=== PATIENT | male | born 1970 | race Caucasian/White ===

== ENCOUNTER 2016-10-14 17:26 | Emergency (ER) | payer SELFPAY ==
--- NOTE | 2016-10-14 18:33 | DIAGNOSTIC IMAGING REPORT ---
PROCEDURE: CT HEAD WITHOUT CONTRAST INDICATION: Seizure and headache, initial encounter TECHNIQUE: Noncontrast axial images with sagittal and coronal reformations. COMPARISON: None. FINDINGS: Sulci, ventricular system, and brain parenchyma are normal. No evidence of acute intracranial process. Mild mucosal thickening of all sinuses. Mastoids are clear. IMPRESSION: 1. No acute intracranial abnormality 2. Mild mucosal thickening of all sinuses 3. Findings discussed with Dr. Umaznor at 06:32 p.m.[facility] Standard Time
--- NOTE | 2016-10-14 18:33 | DIAGNOSTIC IMAGING REPORT ---
PROCEDURE: CT HEAD WITHOUT CONTRAST INDICATION: Seizure and headache, initial encounter TECHNIQUE: Noncontrast axial images with sagittal and coronal reformations. COMPARISON: None. FINDINGS: Sulci, ventricular system, and brain parenchyma are normal. No evidence of acute intracranial process. Mild mucosal thickening of all sinuses. Mastoids are clear. IMPRESSION: 1. No acute intracranial abnormality 2. Mild mucosal thickening of all sinuses 3. Findings discussed with Dr. Umanzor at 06:32 p.m.[facility] Standard Time
--- NOTE | 2016-10-14 21:10 | ED ORDER SUMMARY ---
..... Patient: RYAN RYAN OrderSheet [facility] VisitID: [id number] [address] [place] [address] 45y, M Registration Date/Time: 10/14/2016 ORDER SHEET Weight: 113.3 kg (stated) Allergies: No Known Drug Allergy GENERAL ORDERS: CT Head wo Cont Urgent (18:13 10/14/2016 Lewis Bolton) (Ack 18:17 TBergley) (18:25 MCampbell) CBC w Diff Urgent (18:13 10/14/2016 Lewis Bolton) (Ack 18:17 TBergley) (18:47 TBergley) CMP Urgent (18:10/14/2016 Lewis Bolton) (Ack 18:17 TBergley) (18:47 TBergley) UA-Culture if indicated Urgent (18:13 10/14/2016 Lewis Bolton) (Ack 18:17 TBergley) (18:45 LSullivan R.N.) Urine Drug Screen Urgent (18:13 10/14/2016 Lewis Bolton) (Ack 18:17 TBergley) (18:45 LSullivan R.N.) MEDICATION ORDERS: IV FLUIDS: IV NS : initial bolus none -, then 1000 mL/hr for X1 (NOW) (18:12 10/14/2016 Lewis Bolton) (18:45 LSullivan R.N.) Toradol IV 30 mg (NOW) (20:18 10/14/2016 Lewis Bolton) (Ack 20:54 ALEXInderbitzen R.N.) (20:58 DBeyer R.N.) ORDER SHEET NOTES: [Electronically signed by Sanjana Wilkins R.N. (21:34 10/14/2016)] [Electronically signed by Bautista Umanzor Dr. (21:44 10/15/2016)] [Electronically locked/signed by Sanjana Wilkins R.N. (21:34 10/14/2016)]
--- NOTE | 2016-10-14 21:10 | ED CLINICAL REPORT ---
Clinical Report - Physicians/Mid Levels [facility] [address] [address] 10/14/2016 17:26 Patient: RYAN RYAN Time Seen: 17:43; initial patient contact. Arrived- By ambulance. Historian- patient. HISTORY OF PRESENT ILLNESS Chief Complaint: SINGLE SEIZURE. This occurred just prior to arrival. The patient recovered at the scene. Seizure was witnessed. Had a single isolated seizure. Seizure activity was brief and lasted seconds. The patient lost consciousness. Generalized motor activity observed. No incontinence or apnea noted. No post-ictal symptoms. No injuries noted. Has not recently been ill. No alcohol recently. Pt was dehydrated and bent over to pick something up, felt lightheaded and "passed out and had seizure like activity. Similar symptoms previously: None. Recent medical care: Not recently seen/assessed. REVIEW OF SYSTEMS No fever, palpitations or difficulty breathing. All systems otherwise negative, except as recorded above. PAST HISTORY ( Adult ADHD). Surgeries: No history of previous surgery. Additional Surgeries: no known surgeries. Medications: Ritalin 20 mg daily. Allergies: No Known Drug Allergy. SOCIAL HISTORY Never smoker. Occasional alcohol use. No drug use. ADDITIONAL NOTES The nursing notes have been reviewed with agreement regarding the chief complaint, PMH and patient medications and allergies. PHYSICAL EXAM Vital Signs: 10/14/2016 17:34 BP: 150/87. HR: 123. RR: 18. O2 saturation: 92%. Temp: 98.2 F. Pain level now: 0/10. Have been reviewed. Hypertensive. Tachycardic. Respiratory rate normal. Temperature normal. Oxygen saturation low. Appearance: Alert. No acute distress. Eyes: Pupils equal, round and reactive to light. No nystagmus. Extraocular movements normal. ENT: Normal ENT inspection. Dry mucous membranes present. Neck: Normal inspection. Neck supple. No meningeal signs. CVS: Tachycardia. Heart sounds normal. Rhythm normal. Respiratory: No respiratory distress. Breath sounds normal. Abdomen: Soft and nontender. No organomegaly. Skin: Skin warm and dry. Normal skin color. No rash. Extremities: No lower extremity edema. Neuro: Alert. Oriented X 3. Mood/affect normal. Speech normal. Cranial nerves normal (as tested). No cerebellar findings. No motor deficit. No sensory deficit. Reflexes normal. LABS, X-RAYS, AND EKG Laboratory Tests: UA-Culture if indicated: (VIANNEY: 10/14/2016 18:35) ( [facility] 10/14/2016 19:01) Final results Test Result Flag Units (Reference) URINE COLOR YELLOW URINE APPEARANCE CLEAR URINE GLUCOSE NEGATIVE (NEGATIVE) URINE BILIRUBIN NEGATIVE (NEGATIVE) URINE KETONE 2+ (NEGATIVE) URINE SPECIFIC GRAVITY 1.025 (1.010-1.030) URINE PH 6.0 (5.0-8.0) URINE PROTEIN 1+ (NEGATIVE) URINE UROBILINOGEN 0.2 EU/dL (0.2-1.0) URINE NITRITE NEGATIVE (NEGATIVE) URINE BLOOD TRACE-INTACT (NEGATIVE) URINE LEUK ESTERASE NEGATIVE (NEGATIVE) URINE RBC NONE SEEN rbc/hpf (0-1) URINE WBC RARE wbc/hpf (0-1) URINE EPITHELIAL CELLS 0-1 EPI/hpf (0-5) URINE BACTERIA NONE SEEN (NONE SEEN) URINE COMMENT CULT NOT INDICATED 1+ MUCUS1-3 Hyaline Casts/l.p.f.URINE CULTURES ARE SET-UP BASED ON THE FOLLOWING CRITERIA:POSITIVE NITRITEPOSITIVE LEUKOCYTE ESTERASEGREATER THAN 10 WHITE BLOOD CELLSMODERATE (2+) OR GREATER BACTERIA CBC w Diff: (VIANNEY: 10/14/2016 18:56) ( [facility] 10/14/2016 19:13) Final results Test Result Flag Units (Reference) WHITE BLOOD COUNT 13.1 H K/uL (4.5-11.5) RED BLOOD COUNT 5.12 M/uL (4.50-5.90) HEMOGLOBIN 13.1 L gm/dL (13.5-17.5) HEMATOCRIT 39.8 L % (41.0-53.0) MEAN CELL VOLUME 78 L fL (80-100) MEAN CORPUSCULAR HGB 26 pg (26-34) MEAN CORPUSCULAR HGB CONC 33 g/dL (31-37) RED CELL DISTRIBUTION WIDTH 15.2 H % (11.6-14.8) PLATELET COUNT 287 K/uL (150-400) NEUTROPHIL % 87.5 H % (50-75) LYMPH % 7.6 L % (25-40) MONO % 4.4 % (3-14) EOSINOPHIL % 0.4 % (0-4) BASOPHIL % 0.1 % (0-2) Urine Drug Screen: (VIANNEY: 10/14/2016 18:35) ( [facility] 10/14/2016 18:55) Final results Test Result Flag Units (Reference) AMPHETAMINE/METHAMPHETAMINE NEGATIVE (NEGATIVE) BARBITURATE NEGATIVE (NEGATIVE) BENZODIAZEPINE NEGATIVE (NEGATIVE) CANNABINOID NEGATIVE (NEGATIVE) COCAINE NEGATIVE (NEGATIVE) ECSTASY NEGATIVE (NEGATIVE) METHADONE NEGATIVE (NEGATIVE) OPIATE NEGATIVE (NEGATIVE) The urine drug screen is a qualitative screening test fordrug overdose and abuse. All screen results should beconsidered as presumptive.Drugs screened for are as follows:BenzodiazepinesCocaineAmphetamines/MetamphetaminesTHC (Tetrahydrocannabinol)OpiatesBarbituratesEcstasyMethadonePositive results are unconfirmed. For confirmation, notifythe lab for the specimen to be sent to the reference lab.All confirmations must be performed by a differentmethodology.The ingestion of natural herbal and plant productscontaining Ephedra/Ephedra metabolites can produce in urineone or more substances capable of cross reacting withamphetamine/methamphetamine immunoassays. These testsprovide a preliminary result only. A more specificalternative chemical method must be used to obtain aconfirmed analytical result. CMP: (VIANNEY: 10/14/2016 18:56) ( [facility] 10/14/2016 19:15) Final results Test Result Flag Units (Reference) GLUCOSE 108 mg/dL (70-110) BUN 11 mg/dL (7-18) CREATININE 1.1 mg/dL (0.6-1.3) Estimated GFR >60 mL/min Estimated GFR- >60 mL/min Note: Persistent reduction over 3 months in eGFR<60 mL/min/1.73 m2 defines CKD. Patients with eGFR values>=60 mL/min/1.73 m2 may also have CKD if evidence ofpersistent proteinuria. Additional information may be foundat www.[email or web address].org. SODIUM 142 mmol/L (136-145) POTASSIUM 3.8 mmol/L (3.5-5.1) CHLORIDE 105 mmol/L (98-107) CARBON DIOXIDE 25 mmol/L (21-32) CALCIUM 8.1 L mg/dL (8.5-10.1) TOTAL PROTEIN 7.3 g/dL (6.4-8.2) ALBUMIN 3.4 g/dL (3.3-5.0) BILIRUBIN, TOTAL 0.9 mg/dL (0.0-1.0) ALKALINE PHOSPHATASE 162 H U/L (46-116) AST (SGOT) 53 H U/L (15-37) ALT (SGPT) 61 U/L (12-78) . PROGRESS AND PROCEDURES Disposition: Discharged home in good and improved condition. Condition: good. CLINICAL IMPRESSION Vasovagal syncope INSTRUCTIONS Drink plenty of fluids. Your Current Medications: CONTINUE TAKING THE FOLLOWING MEDICATIONS: Ritalin 20 mg daily*. Prescription Medications: Zofran (orally disintegrating tablets) 4 mg: take 1 orally every 6 hours as needed for nausea and vomiting. Dispense ten (10). No refill. Substitution is permissible. Follow-up: Screening today revealed the patient's blood pressure to be in the hypertensive range. The patient should follow up with a primary care provider for blood pressure management. Follow-up with: [facility], [facility], , [address] [place] [address], [address] [place] [address] Follow up in about four days. Call for an appointment. (Electronically signed by Bautista Umanzor Dr. 10/15/2016 21:44)
--- NOTE | 2016-10-14 21:10 | ED NURSING NOTES ---
Clinical Report - Nurses [facility] [place] [address] 10/14/2016 17:26 Patient: RYAN RYAN TRIAGE Triage time 17:35. Acuity: LEVEL 3. Chief Complaint: SYNCOPE and (Pt bent over towards the floor, passed out, was pale and diaphoretic). Alert. --17:42 Lis Galeano R.N. 17:34 10/14/16. BP: 150/87. HR: 123. RR: 18. O2 saturation: 92%. Temp: 98.2 F. Pain level now: 0/10. --17:42 Lis Galeano R.N. Weight: 113.3 kg stated. Height/Length: 75 inches Per Patient. BMI: 31.2. --17:35 Lis Galeano R.N. Medications Ritalin 20 mg daily. --17:37 Lis Galeano R.N. Allergies No Known Drug Allergy. --17:37 Lis Galeano R.N. History Arrived by EMS. Historian: patient. Accompanied by family. Primary physician (none here, pt from [place], looking to possibly move up here). This started just prior to arrival and today. PAST MEDICAL HX: No history of seizures. SOCIAL HX: Never smoker. Occasional alcohol use. No drug use. SELF HARM ASSESSMENT: A self harm assessment was performed. The patient answered "no" to the question "Do you have thoughts of harming or killing yourself?". FUNCTIONAL ASSESSMENT: Functional assessment: no impairments noted. --17:42 Lis Galeano R.N. PROBLEMS: Adult ADHD. --17:38 Lis Galeano R.N. Interventions ID band on patient. To room. --17:42 Lis Galeano R.N. PHYSICAL ASSESSMENT 17:42 10/14/16. GENERAL / NEURO / PSYCH: Alert. Oriented X 4. Speech within normal limits. Patient appears well-nourished and neat and clean. --17:42 Lis Galeano R.N. NURSING PROGRESS NOTES 17:43 10/14/16. Head of bed elevated. Patient identifiers checked. Call light placed in reach. Bed placed in lowest position. Patient ready for evaluation. --17:43 Lis Galeano R.N. 18:04 10/14/2016 Site #1 started via IV in the right wrist with an 20g angiocath (EMS hung a liter of NS, 500 mls has completed on arrival. ERMD wants that bag finished, then hang another liter of NS after, for a total of 2 liters.). --18:20 Lis Galeano R.N. Patient walked to CO with tech. --18:20 Lis Galeano R.N. 18:45 10/14/2016 Started bag #1 1000 mL IV Fluids IV NS (Saline); at 1000 mL/hr via site #1 via IV pump. Allergies verified and confirmed 5 rights. IV patency established. IV site checked: no pain, redness, or swelling. IV flushed thoroughly pre- and post-medication administration. --18:45 Lis Galeano R.N. 18:48 10/14/16. BP: 144/84. HR: 107. RR: 18. O2 saturation: 94% on room air. Pain level now: 0/10. --18:49 Lis Galeano R.N. Care transferred and report given (to JANETH Yanez). --19:19 Lis Galeano R.N. 19:29 10/14/16. BP: 138/90. HR: 103. RR: 16. O2 saturation: 100%. Pain level now 0/10. --19:29 Sanjana Wilkins R.N. 19:29 10/14/16. The patient reports no complaints and he is calm and resting quietly. Patient waiting for disposition. --19:29 Sanjana Wilkins R.N. 19:39 10/14/16. ( PATIENT NOW STATES FEELING ACHY ALL OVER AND IS REQUESTING SOMETHING FOR PAIN). --19:40 Sanjana Wilkins R.N. 19:40 10/14/2016 IV Fluids IV NS Discontinued: bag #1 infused. Total amount infused: 1000 mL. IV patency established. IV site checked: no pain, redness, or swelling. IV flushed thoroughly. --19:40 Sanjana Wilkins R.N. 20:54 10/14/16. BP: 140/80. HR: 107. RR: 18. O2 saturation: 100%. Temp: 98.8 F. --20:54 Esteban Andujar R.N. 20:58 10/14/2016 Toradol IVP 30 mg given over 2 minute(s) via site #1. Allergies verified and confirmed 5 rights. IV patency established. IV site checked: no pain, redness, or swelling. IV flushed thoroughly pre- and post-medication administration. IVP given by RN. --20:58 Esteban Andujar R.N. DISPOSITION / DISCHARGE 21:32 10/14/2016 Site #1 removed upon discharge. Catheter intact. Pressure dressing and bandaid applied. --21:32 Sanjana Wilkins R.N. 21:33 10/14/16. Departure time: 21:33 Oct 14 2016. Condition at departure: improved and stable. The goals identified in the patient's plan of care were met. No learning barriers present. Discharge instructions provided and reviewed with the patient. Reviewed medication(s) side effects, precautions, dosing and course information. Prescription(s) given to the patient. Reviewed referral to a primary care physician for followup. Summary of care provided to patient via paper. Patient verbalized understanding. Written instructions provided in Urdu. The patient was discharged home and accompanied by family. He left the Emergency Department ambulatory and via private vehicle. Family member driving. --21:33 Sanjana Wilkins R.N. 20:54 10/14/16. BP: 140/80. HR: 107. RR: 18. O2 saturation: 100%. Temp: 98.8 F. 19:29 10/14/16. BP: 138/90. HR: 103. RR: 16. O2 saturation: 100%. Pain level now 0/10. 18:48 10/14/16. BP: 144/84. HR: 107. RR: 18. O2 saturation: 94% on room air. Pain level now: 0/10. 17:34 10/14/16. BP: 150/87. HR: 123. RR: 18. O2 saturation: 92%. Temp: 98.2 F. Pain level now: 010. --21:33 Sanjana Wilkins R.N. Locked/Released at 10/14/2016 21:34 by Sanjana Wilkins R.N.
--- NOTE | 2016-10-14 21:10 | ED ORDER SUMMARY ---
..... Patient: RYAN RYAN OrderSheet [facility] VisitID: [id number] [address] [place] [address] 45y, M Registration Date/Time: 10/14/2016 ORDER SHEET Weight: 113.3 kg (stated) Allergies: No Known Drug Allergy GENERAL ORDERS: CT Head wo Cont Urgent (18:13 10/14/2016 Lewis Bolton) (Ack 18:17 TBergley) (18:25 MCampbell) CBC w Diff Urgent (18:13 10/14/2016 Lewis Bolton) (Ack 18:17 TBergley) (18:47 TBergley) CMP Urgent (18:10/14/2016 Lewis Bolton) (Ack 18:17 TBergley) (18:47 TBergley) UA-Culture if indicated Urgent (18:13 10/14/2016 Lewis Bolton) (Ack 18:17 TBergley) (18:45 LSullivan R.N.) Urine Drug Screen Urgent (18:13 10/14/2016 Lewis Bolton) (Ack 18:17 TBergley) (18:45 LSullivan R.N.) MEDICATION ORDERS: IV FLUIDS: IV NS : initial bolus none -, then 1000 mL/hr for X1 (NOW) (18:12 10/14/2016 Lewis Bolton) (18:45 LSullivan R.N.) Toradol IV 30 mg (NOW) (20:18 10/14/2016 Lewis Bolton) (Ack 20:54 ALEXInderbitzen R.N.) (20:58 DBeyer R.N.) ORDER SHEET NOTES: [Electronically signed by Sanjana Wilkins R.N. (21:34 10/14/2016)] [Electronically signed by Bautista Umanzor Dr. (21:44 10/15/2016)] [Electronically locked/signed by Sanjana Wilkins R.N. (21:34 10/14/2016)]
--- NOTE | 2016-10-14 21:10 | ED CLINICAL REPORT ---
Clinical Report - Physicians/Mid Levels [facility] [address] [place] [address] 10/14/2016 17:26 Patient: RYAN RYAN Time Seen: 17:43; initial patient contact. Arrived- By ambulance. Historian- patient. HISTORY OF PRESENT ILLNESS Chief Complaint: SINGLE SEIZURE. This occurred just prior to arrival. The patient recovered at the scene. Seizure was witnessed. Had a single isolated seizure. Seizure activity was brief and lasted seconds. The patient lost consciousness. Generalized motor activity observed. No incontinence or apnea noted. No post-ictal symptoms. No injuries noted. Has not recently been ill. No alcohol recently. Pt was dehydrated and bent over to pick something up, felt lightheaded and "passed out and had seizure like activity. Similar symptoms previously: None. Recent medical care: Not recently seen/assessed. REVIEW OF SYSTEMS No fever, palpitations or difficulty breathing. All systems otherwise negative, except as recorded above. PAST HISTORY ( Adult ADHD). Surgeries: No history of previous surgery. Additional Surgeries: no known surgeries. Medications: Ritalin 20 mg daily. Allergies: No Known Drug Allergy. SOCIAL HISTORY Never smoker. Occasional alcohol use. No drug use. ADDITIONAL NOTES The nursing notes have been reviewed with agreement regarding the chief complaint, PMH and patient medications and allergies. PHYSICAL EXAM Vital Signs: 10/14/2016 17:34 BP: 150/87. HR: 123. RR: 18. O2 saturation: 92%. Temp: 98.2 F. Pain level now: 0/10. Have been reviewed. Hypertensive. Tachycardic. Respiratory rate normal. Temperature normal. Oxygen saturation low. Appearance: Alert. No acute distress. Eyes: Pupils equal, round and reactive to light. No nystagmus. Extraocular movements normal. ENT: Normal ENT inspection. Dry mucous membranes present. Neck: Normal inspection. Neck supple. No meningeal signs. CVS: Tachycardia. Heart sounds normal. Rhythm normal. Respiratory: No respiratory distress. Breath sounds normal. Abdomen: Soft and nontender. No organomegaly. Skin: Skin warm and dry. Normal skin color. No rash. Extremities: No lower extremity edema. Neuro: Alert. Oriented X 3. Mood/affect normal. Speech normal. Cranial nerves normal (as tested). No cerebellar findings. No motor deficit. No sensory deficit. Reflexes normal. LABS, X-RAYS, AND EKG Laboratory Tests: UA-Culture if indicated: (VIANNEY: 10/14/2016 18:35) ( [facility] 10/14/2016 19:01) Final results Test Result Flag Units (Reference) URINE COLOR YELLOW URINE APPEARANCE CLEAR URINE GLUCOSE NEGATIVE (NEGATIVE) URINE BILIRUBIN NEGATIVE (NEGATIVE) URINE KETONE 2+ (NEGATIVE) URINE SPECIFIC GRAVITY 1.025 (1.010-1.030) URINE PH 6.0 (5.0-8.0) URINE PROTEIN 1+ (NEGATIVE) URINE UROBILINOGEN 0.2 EU/dL (0.2-1.0) URINE NITRITE NEGATIVE (NEGATIVE) URINE BLOOD TRACE-INTACT (NEGATIVE) URINE LEUK ESTERASE NEGATIVE (NEGATIVE) URINE RBC NONE SEEN rbc/hpf (0-1) URINE WBC RARE wbc/hpf (0-1) URINE EPITHELIAL CELLS 0-1 EPI/hpf (0-5) URINE BACTERIA NONE SEEN (NONE SEEN) URINE COMMENT CULT NOT INDICATED 1+ MUCUS1-3 Hyaline Casts/l.p.f.URINE CULTURES ARE SET-UP BASED ON THE FOLLOWING CRITERIA:POSITIVE NITRITEPOSITIVE LEUKOCYTE ESTERASEGREATER THAN 10 WHITE BLOOD CELLSMODERATE (2+) OR GREATER BACTERIA CBC w Diff: (VIANNEY: 10/14/2016 18:56) ( [facility] 10/14/2016 19:13) Final results Test Result Flag Units (Reference) WHITE BLOOD COUNT 13.1 H K/uL (4.5-11.5) RED BLOOD COUNT 5.12 M/uL (4.50-5.90) HEMOGLOBIN 13.1 L gm/dL (13.5-17.5) HEMATOCRIT 39.8 L % (41.0-53.0) MEAN CELL VOLUME 78 L fL (80-100) MEAN CORPUSCULAR HGB 26 pg (26-34) MEAN CORPUSCULAR HGB CONC 33 g/dL (31-37) RED CELL DISTRIBUTION WIDTH 15.2 H % (11.6-14.8) PLATELET COUNT 287 K/uL (150-400) NEUTROPHIL % 87.5 H % (50-75) LYMPH % 7.6 L % (25-40) MONO % 4.4 % (3-14) EOSINOPHIL % 0.4 % (0-4) BASOPHIL % 0.1 % (0-2) Urine Drug Screen: (VIANNEY: 10/14/2016 18:35) ( [facility] 10/14/2016 18:55) Final results Test Result Flag Units (Reference) AMPHETAMINE/METHAMPHETAMINE NEGATIVE (NEGATIVE) BARBITURATE NEGATIVE (NEGATIVE) BENZODIAZEPINE NEGATIVE (NEGATIVE) CANNABINOID NEGATIVE (NEGATIVE) COCAINE NEGATIVE (NEGATIVE) ECSTASY NEGATIVE (NEGATIVE) METHADONE NEGATIVE (NEGATIVE) OPIATE NEGATIVE (NEGATIVE) The urine drug screen is a qualitative screening test fordrug overdose and abuse. All screen results should beconsidered as presumptive.Drugs screened for are as follows:BenzodiazepinesCocaineAmphetamines/MetamphetaminesTHC (Tetrahydrocannabinol)OpiatesBarbituratesEcstasyMethadonePositive results are unconfirmed. For confirmation, notifythe lab for the specimen to be sent to the reference lab.All confirmations must be performed by a differentmethodology.The ingestion of natural herbal and plant productscontaining Ephedra/Ephedra metabolites can produce in urineone or more substances capable of cross reacting withamphetamine/methamphetamine immunoassays. These testsprovide a preliminary result only. A more specificalternative chemical method must be used to obtain aconfirmed analytical result. CMP: (VIANNEY: 10/14/2016 18:56) ( [facility] 10/14/2016 19:15) Final results Test Result Flag Units (Reference) GLUCOSE 108 mg/dL (70-110) BUN 11 mg/dL (7-18) CREATININE 1.1 mg/dL (0.6-1.3) Estimated GFR >60 mL/min Estimated GFR- >60 mL/min Note: Persistent reduction over 3 months in eGFR<60 mL/min/1.73 m2 defines CKD. Patients with eGFR values>=60 mL/min/1.73 m2 may also have CKD if evidence ofpersistent proteinuria. Additional information may be foundat www.kidney.org. SODIUM 142 mmol/L (136-145) POTASSIUM 3.8 mmol/L (3.5-5.1) CHLORIDE 105 mmol/L (98-107) CARBON DIOXIDE 25 mmol/L (21-32) CALCIUM 8.1 L mg/dL (8.5-10.1) TOTAL PROTEIN 7.3 g/dL (6.4-8.2) ALBUMIN 3.4 g/dL (3.3-5.0) BILIRUBIN, TOTAL 0.9 mg/dL (0.0-1.0) ALKALINE PHOSPHATASE 162 H U/L (46-116) AST (SGOT) 53 H U/L (15-37) ALT (SGPT) 61 U/L (12-78) . PROGRESS AND PROCEDURES Disposition: Discharged home in good and improved condition. Condition: good. CLINICAL IMPRESSION Vasovagal syncope INSTRUCTIONS Drink plenty of fluids. Your Current Medications: CONTINUE TAKING THE FOLLOWING MEDICATIONS: Ritalin 20 mg daily*. Prescription Medications: Zofran (orally disintegrating tablets) 4 mg: take 1 orally every 6 hours as needed for nausea and vomiting. Dispense ten (10). No refill. Substitution is permissible. Follow-up: Screening today revealed the patient's blood pressure to be in the hypertensive range. The patient should follow up with a primary care provider for blood pressure management. Follow-up with: [facility] Medicine, [facility], , [address] [place] [address], [address] [place] [address] Follow up in about four days. Call for an appointment. (Electronically signed by Bautista Umanzor Dr. 10/15/2016 21:44)
--- NOTE | 2016-10-15 21:45 | ED MED RECONCILIATION SUMMARY ---
Patient: RYAN RYAN Medication Reconciliation Report [facility] VisitID: [id number] [address] [place] [address] 45y, M Registration Date/Time: 10/14/2016 Weight: 113.3 kg Height/Length: 75 in. BMI: 31.2 ALLERGIES: No Known Drug Allergy The patient's Home Medications are listed below: CONTINUE TAKING THE FOLLOWING MEDICATIONS: Ritalin 20 mg daily The source(s) of the original Home Medication information: Not obtained. The following Medications were given to the patient in the Emergency Department: IV NS IV Fluids bolus 0, then 1000 mL/hr, administered: 10/14/2016 6:45:00 PM Toradol [IVP] IVP 30 mg, administered: 10/14/2016 8:58:00 PM The following Medications were prescribed to the patient: Zofran (orally disintegrating tablets) 4 mg: take 1 orally every 6 hours as needed for nausea and vomiting. Dispense ten (10). No refill. Substitution is permissible. -- Bautista Umanzor Dr.
--- NOTE | 2016-10-15 21:45 | ED MAR SUMMARY ---
..... Medication Administration Record [facility] [address] [place] [address] Patient: RYAN RYAN Visit ID: [id number] 45y, M Weight: 113.3 kg Height/Length: 75 in BMI: 31.2 ALLERGIES: No Known Drug Allergy Start 18:45 10/14/2016 Lis Galeano RDarleen, Stop 19:40 10/14/2016 Sanjana Wilkins R.N. Medication Administered: IV NS (SALINE), Dose: IV Fluids, Rate: 1000 mL/hr, Dispensed: 1000 mL bag, Site: #1 right wrist. Medication Ordered: IV NS : initial bolus none -, then 1000 mL/hr for X1 (NOW). Given 20:58 10/14/2016 Esteban Andujar RDarleen Medication Administered: TORADOL [IVP], Dose: 30 mg IVP over 2 minute(s), Site: #1 right wrist. Medication Ordered: Toradol IV 30 mg (NOW).
--- NOTE | 2016-10-15 21:45 | ED DISCHARGE INSTRUCTIONS ---
Patient: RYAN RYAN General Instructions [facility] VisitID: [id number] [address] [place] [address] 45y, M Registration Date/Time: 10/14/2016 Vasovagal syncope INSTRUCTIONS Drink plenty of fluids. Your Current Medications: CONTINUE TAKING THE FOLLOWING MEDICATIONS: Ritalin 20 mg daily*. Prescription Medications: Zofran (orally disintegrating tablets) 4 mg: take 1 orally every 6 hours as needed for nausea and vomiting. Dispense ten (10). No refill. Substitution is permissible. Follow-up: Screening today revealed the patient's blood pressure to be in the hypertensive range. The patient should follow up with a primary care provider for blood pressure management. Follow-up with: [facility], [facility], , [address] [place] [address], [address], [place] [address] Follow up in about four days. Call for an appointment. ADDITIONAL INFORMATION Fainting:Vagal Reaction Fainting (syncope) is a temporary loss of consciousness ("passing out"). It occurs when blood flow to the brain is reduced. Your doctor believes that your episode was due to a vagal reaction. This condition is not a sign of serious disease. A vagal reaction is a reflex response that causes the pulse to slow down or the blood vessels to dilate. This causes the blood pressure to fall, reducing the blood flow to the brain if you are standing or sitting. That results in dizziness, near-fainting or fainting. Lying down usually stops the reaction within 60 seconds. This reflex response can occur during sudden fear, severe pain, emotional stress, overexertion, overheating, hunger, nausea or vomiting, prolonged standing or standing up after sitting or lying for a long time. Home Care: 1) Rest today and resume your normal activities as soon as you are feeling back to normal. 2) If you become light-headed or dizzy, lie down immediately or sit with your head lowered between your knees. Follow Up with your doctor as instructed. Get Prompt Medical Attention if any of the following occur: -- Another fainting spell occurs, which is not explained by the common causes listed above -- Chest, arm, neck, jaw, back or abdominal pain -- Shortness of breath -- Severe headache or seizure -- Blood in vomit, stools (black or red color) -- Unexpected vaginal bleeding -- Palpitations (very rapid or very slow or irregular heart beat) -- Signs of stroke: Weakness of an arm or leg or one side of the face Difficulty with speech or vision Extreme drowsiness, confusion, dizziness or fainting Ondansetron Oral disintegrating tablet What is this medicine? ONDANSETRON (on LEVAR se mendez) is used to treat nausea and vomiting caused by chemotherapy. It is also used to prevent or treat nausea and vomiting after surgery. How should I use this medicine? These tablets are made to dissolve in the mouth. Do not try to push the tablet through the foil backing. With dry hands, peel away the foil backing and gently remove the tablet. Place the tablet in the mouth and allow it to dissolve, then swallow. While you may take these tablets with water, it is not necessary to do so. Talk to your physician scientist regarding the use of this medicine in children. Special care may be needed. What side effects may I notice from receiving this medicine? Side effects that you should report to your doctor or health nanny caregiver as soon as possible: allergic reactions like skin rash, itching or hives, swelling of the face, lips, or tongue breathing problems dizziness fast or irregular heartbeat feeling faint or lightheaded, falls fever and chills swelling of the hands and feet tightness in the chest Side effects that usually do not require medical attention (report to your doctor or health nanny caregiver if they continue or are bothersome): constipation or diarrhea headache What may interact with this medicine? Do not take this medicine with any of the following medications: -apomorphine -cisapride -dofetilide -dronedarone -pimozide -thioridazine -ziprasidone This medicine may also interact with the following medications: -carbamazepine -phenytoin -rifampicin -tramadol -other medicines that prolong the QT interval (cause an abnormal heart rhythm) What if I miss a dose? If you miss a dose, take it as soon as you can. If it is almost time for your next dose, take only that dose. Do not take double or extra doses. Where should I keep my medicine? Keep out of the reach of children. Store between 2 and 30 degrees C (36 and 86 degrees F). Throw away any unused medicine after the expiration date. What should I tell my health care provider before I take this medicine? They need to know if you have any of these conditions: heart disease history of irregular heartbeat liver disease low levels of magnesium or potassium in the blood an unusual or allergic reaction to ondansetron, granisetron, other medicines, foods, dyes, or preservatives or trying to get breast-feeding What should I watch for while using this medicine? Check with your doctor or health nanny caregiver as soon as you can if you have any sign of an allergic reaction. You have been given the following additional information: Syncope, Vasovagal Ondansetron Oral disintegrating tablet (Electronically signed by Bautista Umanzor Dr. 10/15/2016 21:44)
--- NOTE | 2016-10-15 21:45 | ED DISCHARGE INSTRUCTIONS ---
Patient: RYAN RYAN General Instructions [facility] VisitID: [id number] [address] [place] [address] 45y, M Registration Date/Time: 10/14/2016 Vasovagal syncope INSTRUCTIONS Drink plenty of fluids. Your Current Medications: CONTINUE TAKING THE FOLLOWING MEDICATIONS: Ritalin 20 mg daily*. Prescription Medications: Zofran (orally disintegrating tablets) 4 mg: take 1 orally every 6 hours as needed for nausea and vomiting. Dispense ten (10). No refill. Substitution is permissible. Follow-up: Screening today revealed the patient's blood pressure to be in the hypertensive range. The patient should follow up with a primary care provider for blood pressure management. Follow-up with: [facility], [facility], , [address] [place] [address], [address], [place] [address] Follow up in about four days. Call for an appointment. ADDITIONAL INFORMATION Fainting:Vagal Reaction Fainting (syncope) is a temporary loss of consciousness ("passing out"). It occurs when blood flow to the brain is reduced. Your doctor believes that your episode was due to a vagal reaction. This condition is not a sign of serious disease. A vagal reaction is a reflex response that causes the pulse to slow down or the blood vessels to dilate. This causes the blood pressure to fall, reducing the blood flow to the brain if you are standing or sitting. That results in dizziness, near-fainting or fainting. Lying down usually stops the reaction within 60 seconds. This reflex response can occur during sudden fear, severe pain, emotional stress, overexertion, overheating, hunger, nausea or vomiting, prolonged standing or standing up after sitting or lying for a long time. Home Care: 1) Rest today and resume your normal activities as soon as you are feeling back to normal. 2) If you become light-headed or dizzy, lie down immediately or sit with your head lowered between your knees. Follow Up with your doctor as instructed. Get Prompt Medical Attention if any of the following occur: -- Another fainting spell occurs, which is not explained by the common causes listed above -- Chest, arm, neck, jaw, back or abdominal pain -- Shortness of breath -- Severe headache or seizure -- Blood in vomit, stools (black or red color) -- Unexpected vaginal bleeding -- Palpitations (very rapid or very slow or irregular heart beat) -- Signs of stroke: Weakness of an arm or leg or one side of the face Difficulty with speech or vision Extreme drowsiness, confusion, dizziness or fainting Ondansetron Oral disintegrating tablet What is this medicine? ONDANSETRON (on LEVAR se mendez) is used to treat nausea and vomiting caused by chemotherapy. It is also used to prevent or treat nausea and vomiting after surgery. How should I use this medicine? These tablets are made to dissolve in the mouth. Do not try to push the tablet through the foil backing. With dry hands, peel away the foil backing and gently remove the tablet. Place the tablet in the mouth and allow it to dissolve, then swallow. While you may take these tablets with water, it is not necessary to do so. Talk to your student counsellor regarding the use of this medicine in children. Special care may be needed. What side effects may I notice from receiving this medicine? Side effects that you should report to your doctor or health adult daycare coordinator as soon as possible: allergic reactions like skin rash, itching or hives, swelling of the face, lips, or tongue breathing problems dizziness fast or irregular heartbeat feeling faint or lightheaded, falls fever and chills swelling of the hands and feet tightness in the chest Side effects that usually do not require medical attention (report to your doctor or health adult daycare coordinator if they continue or are bothersome): constipation or diarrhea headache What may interact with this medicine? Do not take this medicine with any of the following medications: -apomorphine -cisapride -dofetilide -dronedarone -pimozide -thioridazine -ziprasidone This medicine may also interact with the following medications: -carbamazepine -phenytoin -rifampicin -tramadol -other medicines that prolong the QT interval (cause an abnormal heart rhythm) What if I miss a dose? If you miss a dose, take it as soon as you can. If it is almost time for your next dose, take only that dose. Do not take double or extra doses. Where should I keep my medicine? Keep out of the reach of children. Store between 2 and 30 degrees C (36 and 86 degrees F). Throw away any unused medicine after the expiration date. What should I tell my health care provider before I take this medicine? They need to know if you have any of these conditions: heart disease history of irregular heartbeat liver disease low levels of magnesium or potassium in the blood an unusual or allergic reaction to ondansetron, granisetron, other medicines, foods, dyes, or preservatives or trying to get breast-feeding What should I watch for while using this medicine? Check with your doctor or health adult daycare coordinator as soon as you can if you have any sign of an allergic reaction. You have been given the following additional information: Syncope, Vasovagal Ondansetron Oral disintegrating tablet (Electronically signed by Bautista Umanzor Dr. 10/15/2016 21:44)
--- NOTE | 2016-10-15 21:45 | ED MAR SUMMARY ---
..... Medication Administration Record [facility] [address] [place] [address] Patient: RYAN RYAN Visit ID: [id number] 45y, M Weight: 113.3 kg Height/Length: 75 in BMI: 31.2 ALLERGIES: No Known Drug Allergy Start 18:45 10/14/2016 Lis Galeano RDarleen, Stop 19:40 10/14/2016 Sanjana Wilkins R.N. Medication Administered: IV NS (SALINE), Dose: IV Fluids, Rate: 1000 mL/hr, Dispensed: 1000 mL bag, Site: #1 right wrist. Medication Ordered: IV NS : initial bolus none -, then 1000 mL/hr for X1 (NOW). Given 20:58 10/14/2016 Esteban Andujar RDarleen Medication Administered: TORADOL [IVP], Dose: 30 mg IVP over 2 minute(s), Site: #1 right wrist. Medication Ordered: Toradol IV 30 mg (NOW).
--- NOTE | 2016-10-15 21:45 | ED MED RECONCILIATION SUMMARY ---
Patient: RYAN RYAN Medication Reconciliation Report [facility] VisitID: [id number] [address] [place] [address] 45y, M Registration Date/Time: 10/14/2016 Weight: 113.3 kg Height/Length: 75 in. BMI: 31.2 ALLERGIES: No Known Drug Allergy The patient's Home Medications are listed below: CONTINUE TAKING THE FOLLOWING MEDICATIONS: Ritalin 20 mg daily The source(s) of the original Home Medication information: Not obtained. The following Medications were given to the patient in the Emergency Department: IV NS IV Fluids bolus 0, then 1000 mL/hr, administered: 10/14/2016 6:45:00 PM Toradol [IVP] IVP 30 mg, administered: 10/14/2016 8:58:00 PM The following Medications were prescribed to the patient: Zofran (orally disintegrating tablets) 4 mg: take 1 orally every 6 hours as needed for nausea and vomiting. Dispense ten (10). No refill. Substitution is permissible. -- Bautista Umanzor Dr.
== END 2016-10-14 21:34 | disposition home or self-care (01) ==
LOC: ED SRH 17:26
DX: R55 Syncope and collapse (principal); R56.9 Unspecified convulsions
CPT/HCPCS: 90004; 90100; 92760; 92761; 92762; 92763; 92764; 92765; 92766; 92767; 95059